=== PATIENT | male | born 1990 | race Caucasian/White ===

== ENCOUNTER 2018-03-19 20:30 | Emergency (ER) | payer OTHER ==
[~2018-03-19] VITALS: Ht 165.1 cm; Wt 74.8 kg
[2018-03-19 22:19] LABS: ABSOLUTE BASOPHIL COUNT 0 /CUMM (0.0-0.2); ABSOLUTE EOSINOPHIL COUNT 0.1 /CUMM (0.0-0.7); ABSOLUTE GRANULOCYTE CT 6.2 /CUMM (1.4-6.5); ABSOLUTE LYMPH COUNT 1.9 /CUMM (1.2-3.4); ABSOLUTE MONOCYTE COUNT 0.8 /CUMM (0.10-0.60); BASOPHIL % 0.4 % (0.0-2.0); EOSINOPHIL % 1.3 % (0-5); GRANULOCYTE % 68.1 % (42.2-75.2); HEMATOCRIT 44.4 % (42-52); MEAN CORPUSCULAR HGB 29.9 PG (27.0-31.0); MEAN CORPUSCULAR HGB CONC 34.2 G/DL (33.0-37.0); MEAN CORPUSCULAR VOLUME 87.6 FL (80.0-94.0); MEAN PLATELET VOLUME 7.7 FL (7.4-10.4); PLATELET COUNT 275 /CUMM (130-400); RBC DISTRIBUTION WIDTH 13.3 % (11.5-14.5); RED BLOOD CELL CT 5.07 /CUMM (4.70-6.10); WHITE BLOOD CELL COUNT 9.1 /CUMM (4.8-10.8)
[2018-03-19 22:27] LABS: PT 11.8 SEC (9.4-12.5); PTT 27 SEC (25-37)
--- NOTE | 2018-03-19 22:33 | ED GI/GU/ABDOMINAL COMPLAINT ---
History of Present Illness General Chief Complaint: Abdominal Pain/Flank Pain Stated Complaint: ABD PAIN Source: patient, family, old records Exam Limitations: no limitations Vital Signs & Intake/Output Vital Signs & Intake/Output Vital Signs Date Time Temp Pulse Resp B/P B/P Pulse O2 O2 Flow FiO2 Mean Ox Delivery Rate 03/19 2254 98.4 66 16 121/76 100 Room Air 03/19 2043 97.3 78 20 132/90 96 Room Air ED Intake and Output 03/20 0000 03/19 1200 Intake Total Output Total Balance Patient 165 lb Weight Allergies Coded Allergies: buspirone (From [facility]PAR) (THROAT CLOSES 03/19/18) tramadol (THROAT CLOSES 03/19/18) Reconcile Medications Baclofen 10 MG TABLET 1 TAB PO TID PRN muscle strain Hydrocodone/Acetaminophen ([place] 5-325 Tablet) 5 MG-325 MG TABLET 1-2 TAB PO Q4-6 PRN PRN severe pain Ibuprofen 600 MG TABLET 1 TAB PO Q6P PRN pain with food Triage Note: PT TO ED C/O PRESSURE IN RUQ, "FEELS LIKE A KNOT" FOR 1 1/2 WEEK. "I ONLY FEEL IT WHEN I SIT, NOT WHEN I STAND" DENIES N/V/D. DENIES UTI S/S. LAST BM WAS TODAY AND WAS NORMAL. PT STATES HE HAS A FAMILY HISTORY OF GASTRO/INTESTINAL CANCER THAT IS HEREDITARY. HAS A FAMILY HISTORY OF GASTRO/INTESTINAL CANCER THAT IS HEREDITARY. Triage Nurses Notes Reviewed? yes Onset: Last week Duration: day(s):, constant, continues in ED Timing: recent history Quality/Severity: moderate, sharpness Location: right upper quadrant Radiation: no radiation Activities at Onset: rest Prior Abdominal Problems: none Past Sexual History: Unobtainable at this time Modifying Factors: Worsens With: movement, palpation. Associated Symptoms: abdominal pain HPI: 10 days prior to admission patient complains of right upper quadrant pain described as sharp moderate to severe worse with sitting up and palpation nonradiating constant. He denies fever chills nausea vomiting diarrhea chest pain cough shortness of breath headache dysuria rash bleeding trauma. Past History Travel History Traveled to [place] past 21 day No Medical History Any Pertinent Medical History? see below for history Gastrointestinal: LIVER LACERATION 2014 Psychiatric: anxiety Surgical History Surgical History: non-contributory Psychosocial History What is your primary language Kazakh Tobacco Use: Never used ETOH Use: occasional use Illicit Drug Use: denies illicit drug use Family History Hx Contributory? No Review of Systems Review of Systems Constitutional: Reports: no symptoms. EENTM: Reports: no symptoms. Respiratory: Reports: no symptoms. Cardiovascular: Reports: no symptoms. GI: Reports: see HPI, abdominal pain. Genitourinary: Reports: no symptoms. Musculoskeletal: Reports: no symptoms. Skin: Reports: no symptoms. Neurological/Psychological: Reports: no symptoms. Hematologic/Endocrine: Reports: no symptoms. Immunologic/Allergic: Reports: no symptoms. All Other Systems: Reviewed and Negative Physical Exam Physical Exam General Appearance: well developed/nourished, alert, awake, anxious, mild distress Head: atraumatic, normal appearance Eyes: Bilateral: normal appearance, PERRL, EOMI, normal inspection. Ears, Nose, Throat, Mouth: hearing grossly normal, moist mucous membrane Neck: normal inspection, supple, full range of motion, normal alignment Respiratory: normal breath sounds, chest non-tender, no respiratory distress, quiet respiration, lungs clear Cardiovascular: regular rate/rhythm, normal peripheral pulses, norml femoral pulses equa Peripheral Pulses: 4+ carotid (R), 4+ carotid (L) Gastrointestinal: normal bowel sounds, soft, no organomegaly, tenderness (right upper quadrant) Male Genitals: normal genitalia Back: normal inspection, normal range of motion Extremities: normal range of motion, no ligament instability Neurologic/Psych: no motor/sensory deficits, awake, alert, oriented x 3, normal gait, normal mood/affect, shift mgr II-XII nml as tested Skin: intact, normal color, warm/dry Core Measures ACS in differential dx? No Sepsis Present: No Sepsis Focused Exam Completed? No Progress Differential Diagnosis: biliary colic, colon cancer, pancreatitis Plan of Care: Orders Procedure Date/time Status PARTIAL THROMBOPLASTIN TIME 03/19 2206 Complete PROTHROMBIN TIME 03/19 2206 Complete LIPASE 03/19 2206 Complete COMPREHENSIVE METABOLIC PANEL 03/19 2206 Complete CBC WITHOUT DIFFERENTIAL 03/19 2206 Complete Laboratory Tests 03/19/182214: Anion Gap 8, Estimated GFR > 60, BUN/Creatinine Ratio 16.7, Glucose 98, Calcium 9.9, Total Bilirubin 0.9, AST 32, ALT 44, Alkaline Phosphatase 81, Total Protein 8.1, Albumin 4.7, Globulin 3.4, Albumin/Globulin Ratio 1.4, Lipase 97, PT 11.8, INR 1.08, APTT 27, CBC w Diff NO MAN DIFF REQ, RBC 5.07, MCV 87.6, MCH 29.9, MCHC 34.2, RDW 13.3, MPV 7.7, Gran % 68.1, Lymphocytes % 21.3, Monocytes % 8.9, Eosinophils % 1.3, Basophils % 0.4, Absolute Granulocytes 6.2, Absolute Lymphocytes 1.9, Absolute Monocytes 0.8 H, Absolute Eosinophils 0.1, Absolute Basophils 0 Diagnostic Imaging: Viewed by Me: CT Scan. Discussed w/RAD: CT Scan. Radiology Impression: No significant abnormality. No liver laceration. Initial ED EKG: none Departure Departure Time of Disposition: 29 Disposition: HOME OR SELF CARE Condition: Stable Clinical Impression Primary Impression: RUQ abdominal pain Referrals: Patient Has No Primary Care Dr (PCP/Family) Departure Forms: Customer Survey General Discharge Information RELEASE- WORK Prescriptions: Current Visit Scripts Ibuprofen 1 TAB PO Q6P PRN pain #50 TAB with food Baclofen 1 TAB PO TID PRN muscle strain #30 TAB Hydrocodone/Acetaminophen ([place] 5-325 Tablet) 1-2 TAB PO Q4-6 PRN PRN severe pain #15 TAB
--- NOTE | 2018-03-19 23:49 | CT SCAN REPORT ---
EXAMINATION: CT ABDOMEN AND PELVIS WITH CONTRAST CLINICAL INFORMATION: Right upper quadrant injury. COMPARISON: None TECHNIQUE: Multidetector volumetric imaging was performed of the abdomen and pelvis following IV administration of 95 mL of Optiray 320 intravenous contrast. Sagittal and coronal reformatted images were obtained on the technologist's workstation. DLP: 291 mGy-cm FINDINGS: LUNG BASES: The visualized lung bases are unremarkable. LIVER, GALLBLADDER, AND BILIARY TREE: The liver is normal in size, shape, and attenuation. No focal hepatic lesion or biliary ductal dilatation is present. The gallbladder is unremarkable with no evidence of radiopaque gallstones, gallbladder wall thickening, or obvious pericholecystic inflammatory changes. PANCREAS: Unremarkable. SPLEEN: Unremarkable. ADRENAL GLANDS: Unremarkable. KIDNEYS AND URETERS: The kidneys are normal in size, shape, and attenuation. No hydronephrosis, hydroureter, or calculi seen. No perinephric stranding. BLADDER: Unremarkable. GASTROINTESTINAL TRACT: The small and large bowel are unremarkable. The appendix is unremarkable. ABDOMINAL WALL: No significant hernia is appreciated. LYMPH NODES: Normal. VASCULAR: Unremarkable. PELVIC VISCERA: Unremarkable. OSSEOUS STRUCTURES: Unremarkable. IMPRESSION: No significant abnormality. No liver laceration.
[2018-03-20] MEDS ORDERED: BACLOFEN10 M1 PO (00:31)
[2018-03-20] MEDS ORDERED: NORCO 5-325 TA1 EACH PO (00:31)
[2018-03-20] MEDS ORDERED: IBUPROFEN600 M1 PO (00:31)
[2018-03-20 00:41] VITALS: BP 128/58
== END 2018-03-20 00:54 ==
LOC: ERH 20:30
PROVIDERS: Emergency Medicine
DX: R10.11 Right upper quadrant pain (principal)
CPT/HCPCS: 74177; J1885